=== PATIENT | male | born 2000 | race Caucasian/White ===

== ENCOUNTER 2022-10-26 15:54 | Emergency (ER) | payer BC, SELFPAY ==
[2022-10-26 15:59] VITALS: BP 156/95; PULSE 57; RESP 16; TEMP 36.8; O2SAT 97; BMI 18.3
--- NOTE | 2022-10-26 17:30 | ED_ITS ---
HPI - Male Genitourinary General: Chief complaint: Urogenital-Male Stated complaint: bloody urine/testicle pain Time Seen by Provider: 10/26/22 17:29 History of Present Illness: 22-year-old male patient comes in today with some complaints of flank pain starting about 2 months ago radiating into the groin. Patient reports that he was seen at a walk-in clinic they did a urine test that showed no abnormality but did note that he had herpes at the time. Patient states that cleared up but since then he has continued to have some radiating discomfort into his testicle. Patient reports urinary urgency. Patient denies any fever or chills. Patient appears nontoxic. Patient reports no further STI testing was noted at that time. Associated symptoms: Deny vomiting Review of Systems General: Reports: 10 or more systems reviewed and unremarkable except in HPI and below Card: Denies: chest pain Resp: Denies: dyspnea GI: Denies: vomiting : Reports: flank pain, urinary urgency and testicular pain Musc: Denies: extremity pain Skin/Breast: Denies: rash Physical Exam Const: COMMON NORMALS: alert HENMT: COMMON NORMALS: normocephalic HEAD & SCALP: normocephalic Neck/C-Spine: COMMON NORMALS: full ROM Resp: COMMON NORMALS: normal respiratory effort Cardio: COMMON NORMALS: regular rate RATE: regular rate GI: COMMON NORMALS: non-tender : COMMON NORMALS: Yes no CVA tenderness BLADDER/KIDNEY EXAM: Yes no CVA tenderness PENIS: normal penis MEATUS: meatus normal SCROTUM: Yes testes descended bilaterally TESTES: Yes testicular lie normal, No testicular swelling, No testicular mass, No epididymal induration, No epididymal mass and No epididymal tenderness Back/Pelvis: COMMON NORMALS: no CVA tenderness Extremity: COMMON NORMALS: full ROM Neuro: SENSORIUM/ORIENTATION: Yes alert Skin: COMMON NORMALS: turgor normal GENERAL SKIN EXAM: turgor normal Course Vital Signs: Vital signs: Vital Signs Temperature 98.2 F 10/26/22 15:59 Pulse Rate 57 L 10/26/22 15:59 Respiratory Rate 16 10/26/22 15:59 Blood Pressure 156/95 10/26/22 15:59 Pulse Oximetry 97 10/26/22 15:59 Oxygen Delivery Me thod Room Air 10/26/22 15:59 MDM - Male Medical Decision Making 22-year-old male patient comes in today for complaints of flank pain radiating into the groin. The discomforts been going on for about 2 months now. Patient reports it waxes and wanes. For the last 2 or 3 days patient's had some increased discomfort which radiates into the testicle. Patient also reports urinary urgency. Patient appears nontoxic. Patient appears in mild discomfort. Differential diagnosis includes but not limited to STI, epididymitis, testicular torsion, renal calculi, UTI, postherpetic neuralgia. Examination of the testicles was unremarkable showing no sign of epididymitis or testicular torsion. Urinalysis showed red blood cells but no significant number of white blood cells. CBC and CMP was unremarkable. CT of the abdomen pelvis noted a 6 mm calculus in the right distal ureter. Reviewed exam with patient and recommendations for follow-up with urologist for further evaluation and treatment for the renal stone. No signs of other abnormality is noted on the CT scan. Patient reported understanding and agreed to plan. Case management was requested to assist with follow-up with urology. Lab Data 10/26/22 18:25 10/26/22 18:25 Radiology Impressions Abdomen/Pelvis CT 10/26/22 17:45 IMPRESSION: There is moderate to severe right hydronephrosis and hydroureter with a 6 mm calculus distal right ureter approximately 3 cm proximal to the right ureteral vesicle junction. This calculus is visualized on the ceramic tile installer medial to the right hip joint. Laboratory Results WBC 7.9 10^3/uL (4.0-10.0) 10/26/22 18: RBC 4.74 10^6/uL (4.1-5.3) 10/26/22 18: Hgb 14.8 g/dL (11.7-16.6) 10/26/22 18: Hct 45.6 % (42.0-52.0) 10/26/22 18: MCV 96.2 fl (80-94) H 10/26/22 18: MCH 31.2 pg (28.0-34.0) 10/26/22 18: MCHC 32.5 g/dL (30.0-36.0) 10/26/22 18: RDW 12.6 % (12.1-15.1) 10/26/22 18:25 Plt Count 257 10^3/cmm (130-400) 10/26/22 18:25 MPV 10.8 fL (7.4-10.4) H 10/26/22 18:25 Neut % (Auto) 68.9 % 10/26/22 18:25 Lymph % (Auto) 22.0 % 10/26/22 18:25 [place] % (Auto) 6.7 % 10/26/22 18:25 Eos % (Auto) 1.4 % 10/26/22 18:25 Baso % (Auto) 0.6 % 10/26/22 18:25 Neut # (Auto) 5.43 10^3/uL (1.8-7.7) 10/26/22 18:25 Lymph # (Auto) 1.7 10^3/uL (0.8-4.8) 10/26/22 18:25 [place] # (Auto) 0.5 10^3/uL (0.2-0.9) 10/26/22 18:25 Eos # (Auto) 0.1 10^3/uL (0.0-0.8) 10/26/22 18:25 Baso # (Auto) 0.1 10^3/uL (0.0-0.1) 10/26/22 18:25 Nucleated RBC % (auto) 0 % 10/26/22 18:25 Nucleated RBCs # 0.0 /100WBC 10/26/22 18:25 Sodium 140 mmol/L (136-145) 10/26/22 18:25 Potassium 4.2 mmol/L (3.5-5.1) 10/26/22 18:25 Chloride 101 mmol/L (98-107) 10/26/22 18:25 Carbon Dioxide 29 mmol/L (22-29) 10/26/22 18:25 Anion Gap 14.2 (5-19) 10/26/22 18:25 BUN 16 mg/dL (6-20) 10/26/22 18:25 Creatinine 1.3 mg/dL (0.7-1.2) H 10/26/22 18:25 GFR Calculation 67.8 mL/min (90-130) L 10/26/22 18:25 Glucose 80 mg/dL (65-115) 10/26/22 18:25 Calculated Osmolality 290 mOsm/kg (285-295) 10/26/22 18:25 Calcium 9.5 mg/dL (8.5-10.5) 10/26/22 18:25 Total Bilirubin 0.6 mg/dL (0.15-1.2) 10/26/22 18:25 AST 15 U/L (0-40) 10/26/22 18:25 ALT 14 U/L (0-41) 10/26/22 18:25 Alkaline Phosphatase 74 U/L (40-130) 10/26/22 18:25 Total Protein 7.8 g/dL (6.6-8.7) 10/26/22 18:25 Albumin 4.9 g/dL (3.5-5.2) 10/26/22 18:25 Globulin 2.9 g/dL (1.3-4.6) 10/26/22 18:25 Urine Color Yellow (Yellow) 10/26/22 18:00 Urine Appearance Hazy (CLEAR) A 10/26/22 18:00 Urine pH 6.5 (5-7) 10/26/22 18:00 Ur Specific [place] 1.015 (1.005-1.030) 10/26/22 18:00 Urine Protein Trace (Negative) 10/26/22 18:00 Urine Glucose (UA) Norm (Normal) 10/26/22 18:00 Urine Ketones Negative (Negative) 10/26/22 18:00 Urine Blood 3+ (Negative) H 10/26/22 18:00 Urine Nitrate Negative (Negative) 10/26/22 18:00 Urine Bilirubin Neg (Negative) 10/26/22 18:00 Urine Urobilinogen 1 mg/dL (Negative) H 10/26/22 18:00 Ur Leukocyte Esterase Negative (Negative) 10/26/22 18:00 Urine RBC Too numerous to cnt /hpf (0-2) H 10/26/22 18:00 Urine WBC 0-4 /hpf (0-5) H 10/26/22 18:00 Ur Squamous Epith Cells 0-4 /hpf (0-5) H 10/26/22 18:00 Amorphous Sediment 2+ /hpf 10/26/22 18:00 Urine Bacteria 1+ /hpf (NONE) H 10/26/22 18:00 Discharge Plan Discharge Patient Disposition: Home Clinical Impression: Right ureteral calculus Condition: Stable Prescriptions: New hydrocodone-acetaminophen 5-325 mg tablet 1 tab PO Q8H PRN (Reason: pain (scale score 7-10)) Qty: 10 0RF ketorolac 10 mg tablet 10 mg PO Q6H PRN (Reason: pain (scale score 4-6)) 5 Days Qty: 20 0RF ondansetron HCl 4 mg tablet 4 mg PO Q8H PRN (Reason: nausea and vomiting) Qty: 10 0RF Discharge Orders: Discharge ED (Routine); Ordered 10/26/22 Ordered By: Nura Pérez Discharge Diet: Usual diet Discharge Activity: Resume usual activity Patient Instructions: Kidney Stones (ED), How to Strain Your Urine (ED), Opioid Safety Activity Restrictions/Additional Instructions: Home and rest. Activity as tolerated. Drink and eat normally. Use ketorolac for mild to moderate pain 1 tablet every 6 hours. Use hydrocodone for severe pain. Use ondansetron as needed for nausea. Follow-up with primary care as needed. Follow-up with urologist for further treatment of the kidney stone. Return to ER for high fever, uncontrolled pain, or inability to hold fluids down. Case management will contact you for assistance to follow-up with urology. Coding Level of Care Code ED Fitness Plan Coordinator for Talia Quinones
--- NOTE | 2022-10-26 17:45 | CTR_ITS ---
PROCEDURE INFORMATION: Exam: CT Abdomen And Pelvis Without Contrast Exam date and time: 10/26/2022 6:10 PM Age: 22 years old Clinical indication: Abdominal pain; Right; Patient HX: RT flank/groin pain with dysuria. ; Additional info: Right flank pain TECHNIQUE: Imaging protocol: Computed tomography of the abdomen and pelvis without contrast. Radiation optimization: All CT scans at this facility use at least one of these dose optimization techniques: automated exposure control; mA and/or kV adjustment per patient size (includes targeted exams where dose is matched to clinical indication); or iterative reconstruction. REPORTING DATA: Count of CT and Cardiac NM exams in prior 12 months: This patient has received 0 known CTs and 0 known cardiac nuclear medicine studies in the 12 months prior to the current study. COMPARISON: MR thoracic spin wo con* [id number] 10/26/2018 2:30 PM RADIATION DOSE METRICS: Total DLP (mGy-cm): 382.41 FINDINGS: Liver: Unremarkable.No mass. Gallbladder and bile ducts: Normal. No calcified stones. No ductal dilation. Pancreas: The pancreas is normal. Spleen: The spleen is normal. Adrenal glands: Normal. No mass. Kidneys and ureters: There is moderate to severe right hydronephrosis and hydroureter with a 6 mm calculus distal right ureter approximately 3 cm proximal to the right ureteral vesicle junction. There is no evidence of left hydronephrosis. There are multiple bilateral renal collecting system calcifications. Stomach and bowel: There is no evidence of intestinal perforation or obstruction. There is no evidence of colitis/diverticulitis. Appendix: A normal appendix is identified. Intraperitoneal space: Unremarkable. No free air. No significant fluid collection. Vasculature: The aorta is normal. Lymph nodes: Unremarkable.No enlarged lymph nodes. Urinary bladder: The bladder is decompressed. Reproductive: Unremarkable as visualized. Bones/joints: No acute bony abnormality. Mild chronic anterior wedging of T12 and L1. Small disc bulge at L4-L5 with mild narrowing of the central canal and foramina. Soft tissues: Unremarkable. CT/CT kidney stone [id number] IMPRESSION: There is moderate to severe right hydronephrosis and hydroureter with a 6 mm calculus distal right ureter approximately 3 cm proximal to the right ureteral vesicle junction. This calculus is visualized on the wheel installer medial to the right hip joint.
[2022-10-26 18:48] LABS: Alanine Aminotransferase 14 U/L (0-41); Albumin Level 4.9 g/dL (3.5-5.2); Alkaline Phosphatase 74 U/L (40-130); Anion Gap 14.2 (5-19); Aspartate Amino Transferase 15 U/L (0-40); Blood Urea Nitrogen 16 mg/dL (6-20); Calcium 9.5 mg/dL (8.5-10.5); Carbon Dioxide 29 mmol/L (22-29); Chloride 101 mmol/L (98-107); Globulin 2.9 g/dL (1.3-4.6); Glomerular Filtration Rate 67.8 mL/min (90-130); Glucose 80 mg/dL (65-115); Osmolality Calculated 290 mOsm/kg (285-295); Potassium 4.2 mmol/L (3.5-5.1); Sodium 140 mmol/L (136-145); Total Bilirubin 0.6 mg/dL (0.15-1.2); Total Protein 7.8 g/dL (6.6-8.7)
[2022-10-26 18:49] LABS: Basophils # 0.1 10^3/uL (0.0-0.1); Basophils % 0.6 %; Eosinophils # 0.1 10^3/uL (0.0-0.8); Eosinophils % 1.4 %; Hematocrit 45.6 % (42.0-52.0); Hemoglobin 14.8 g/dL (11.7-16.6); Lymphocytes # 1.7 10^3/uL (0.8-4.8); Mean Corpuscular HGB Conc 32.5 g/dL (30.0-36.0); Mean Corpuscular Hemoglobin 31.2 pg (28.0-34.0); Mean Corpuscular Volume 96.2 fl (80-94); Mean Platelet Volume 10.8 fL (7.4-10.4); Monocytes # 0.5 10^3/uL (0.2-0.9); Monocytes % 6.7 %; Neutrophils # 5.43 10^3/uL (1.8-7.7); Neutrophils % 68.9 %; Nucleated Red Blood Cells % 0 %; Platelet Count 257 10^3/cmm (130-400); Red Blood Count 4.74 10^6/uL (4.1-5.3); Red Cell Distribution Width 12.6 % (12.1-15.1); White Blood Count 7.9 10^3/uL (4.0-10.0)
[2022-10-26 19:01] LABS: Bilirubin Urine Neg (Negative); Blood Urine 3+ (Negative); Glucose Urine UA Norm (Normal); Ketones Urine Negative (Negative); Nitrate Urine Negative (Negative); Protein Urine Trace (Negative); Specific Gravity, Urine 1.015 (1.005-1.030); Urine Appearance Hazy (CLEAR); Urine Color Yellow (Yellow); Urobilinogen Urine 1 mg/dL (Negative); pH Urine 6.5 (5-7)
[2022-10-26 19:02] LABS: Add Urine Microscopic? YES; Leukocyte Esterase Urine Negative (Negative); RBC Urine TOO NUMEROUS TO CNT /hpf (0-2)
[2022-10-26 19:04] LABS: Squamous Epithelial Cell Urine 0-4 /hpf (0-5); WBC Urine 0-4 /hpf (0-5)
[2022-10-26 19:05] LABS: Add Urine Culture? Yes; Amorphous Sediment Urine 2+ /hpf; Bacteria Urine 1+ /hpf
[2022-10-26 19:32] VITALS: BP 128/76; PULSE 48; RESP 16; O2SAT 98
--- NOTE | 2022-10-28 14:13 | DCPLANNER ---
Addendum entered by Mala Beltre 10/29/22 08:50: outside sales account manager called [facility] urology to confirm that clinic had received patients information. outside sales account manager was told that facility had received patients information, it will be reviewed, and clinic will call patient with appointment information. Original Note: outside sales account manager had message to schedule a follow up appointment for patient with urology. outside sales account manager spoke with patient to confirm where patient wanted the referral to be sent due to [facility] not having a urologist. Patient stated that he would like referral to be sent to [facility]. outside sales account manager faxed patients information to the [facility] urology. Patients information will be reviewed, clinic will call patient with appointment information.
== END 2022-10-26 19:34 | disposition home or self-care (01) ==
PROVIDERS: Emergency Provider Nurse Practitioner Family
DX: N13.2 Hydronephrosis with renal and ureteral calculous obstruction (principal)
CPT/HCPCS: 36415; 74176; 80053; 81001; 85025; 87086; 87491; 87591; 99284